=== PATIENT | female | born 1990 | race Two or more races ===

== ENCOUNTER → 2017-05-20 | Outpatient (CLI) | payer BC ==
[2017-05-20 12:36] LABS: Basophils # (auto) 0 uL; Basophils % (auto) 0.2 % (0.0-2.0); Eosinophils # (auto) 0.1 uL; Eosinophils % (auto) 0.6 % (0.0-7.0); Hematocrit 42.3 % (36.0-46.0); Lymphocytes # (auto) 1.8 uL; Lymphocytes % (auto) 17.6 % (10.0-50.0); Mean Corpuscular Hemoglobin 28.5 pg (28.0-32.0); Mean Corpuscular Hgb Conc. 33.1 g/dL (32.0-36.0); Monocytes # (auto) 0.7 uL; Monocytes % (auto) 6.8 % (0.0-12.0); Neutrophils # (auto) 7.4 uL; Neutrophils % (auto) 74.8 % (37.0-80.0); Nucleated Red Blood Cells % 0.1 %; Platelet Count (auto) 257 10^3/uL (140-450); Red Blood Cells 4.92 10^6/uL (4.0-5.20); Red Cell Distribution Width 15.8 % (11.8-14.3)
[2017-05-21 05:06] LABS: RPR Non Reactive (Non Reactive)
== END | disposition home or self-care (01) ==
LOC: LAB 11:20
PROVIDERS: ATTEND Obstetrics & Gynecology
DX: Z34.80 Encounter for supervision of other normal pregnancy, unspecified trimester (principal)
CPT/HCPCS: 36415; 85025; 87081

== ENCOUNTER 2017-06-03 10:28 | Observation (INO) | payer BC ==
[2017-06-03] MEDS ORDERED: PREN-96 PO (12:19)
== END 2017-06-03 12:15 | disposition home or self-care (01) | DRG 781 ==
LOC: LDRP 10:28
PROVIDERS: ADMIT Obstetrics & Gynecology; ATTEND Obstetrics & Gynecology
DX: O24.419 Gestational diabetes mellitus in pregnancy, unspecified control (principal); Z3A.37 37 weeks gestation of pregnancy
CPT/HCPCS: 59025; 76818; 81002; G0378

== ENCOUNTER 2017-06-06 10:52 | Observation (INO) | payer BC ==
[~2017-06-06 10:52] MED LIST: PREN-96 PO
== END 2017-06-06 13:00 | disposition home or self-care (01) | DRG 781 ==
LOC: LDRP 10:52
PROVIDERS: ADMIT Obstetrics & Gynecology; ATTEND Obstetrics & Gynecology
DX: O24.419 Gestational diabetes mellitus in pregnancy, unspecified control (principal); Z3A.00 Weeks of gestation of pregnancy not specified
CPT/HCPCS: 59025; 76818; 81002; 82962; G0378

== ENCOUNTER 2017-06-11 11:10 | Observation (INO) | payer BC | END 2017-06-11 13:15 | disposition home or self-care (01) | DRG 781 | LOC: LDRP 11:10 | PROVIDERS: ADMIT Specialist; ATTEND Specialist | DX: O24.410 Gestational diabetes mellitus in pregnancy, diet controlled (principal); Z3A.38 38 weeks gestation of pregnancy | CPT/HCPCS: 59025; 76818; 81002; 82948; 82962; G0378 ==

== ENCOUNTER 2017-06-14 11:00 | Observation (INO) | payer BC | END 2017-06-14 12:05 | disposition home or self-care (01) | DRG 781 | LOC: LDRP 11:00 | PROVIDERS: ADMIT Specialist; ATTEND Specialist | DX: O24.419 Gestational diabetes mellitus in pregnancy, unspecified control (principal); Z3A.39 39 weeks gestation of pregnancy | CPT/HCPCS: 59025; 76818; 81002; 82948; 82962; G0378 ==

== ENCOUNTER 2017-06-19 13:15 | Observation (INO) | payer BC | END 2017-06-19 15:15 | disposition home or self-care (01) | DRG 781 | LOC: LDRP 13:15 | PROVIDERS: ADMIT Specialist; ATTEND Specialist | DX: O24.419 Gestational diabetes mellitus in pregnancy, unspecified control (principal); Z3A.39 39 weeks gestation of pregnancy | CPT/HCPCS: 59025; 76818; 81002; G0378 ==

== ENCOUNTER 2017-06-21 12:00 | Observation (INO) | payer BC | END 2017-06-21 14:10 | disposition home or self-care (01) | DRG 781 | LOC: LDRP 12:00 | PROVIDERS: ADMIT Obstetrics & Gynecology; ATTEND Obstetrics & Gynecology | DX: O48.0 Post-term pregnancy (principal); O24.419 Gestational diabetes mellitus in pregnancy, unspecified control; Z3A.40 40 weeks gestation of pregnancy | CPT/HCPCS: 59025; 76818; 81002; 82962; G0378 ==

== ENCOUNTER 2017-06-23 19:00 | Inpatient (IN) | payer BC ==
[~2017-06-23] VITALS: Ht 157.5 cm; Wt 93.0 kg
[2017-06-23] MEDS ORDERED: LACT. RINGERS/OXYTOCIN 20UNITS 1,000 ML IV SCH (19:09)
[2017-06-23] MEDS ORDERED: NALBUPHINE HCL 10 MG/1ml INJECTION IV PRN (19:15)
[2017-06-23] MEDS ORDERED: METHYLERGONOVINE MALEATE 0.2 MG/ML AMP IM PRN (19:15)
[2017-06-23] MEDS ORDERED: CARBOPROST TROMETHAMINE 250 MCG/1ML VIAL IM PRN (19:15)
[2017-06-23] MEDS ORDERED: WITCH HAZEL-GLYCERIN PAD TOP PRN (19:15)
[2017-06-23] MEDS ORDERED: LIDOCAINE 2%HCL (LOCAL ANESTH.) INJ 20ML MDV IJ ONE (19:15)
[2017-06-23] MEDS ORDERED: PHISODERM TOP SOLN 240ML BTL TOP PRN (19:15)
[2017-06-23] MEDS ORDERED: DERMOPLAST 60ML BOTTLE TOP PRN (19:15)
[2017-06-23 20:39] LABS: Basophils # (auto) 0 uL; Basophils % (auto) 0.3 % (0.0-2.0); Eosinophils # (auto) 0 uL; Eosinophils % (auto) 0.4 % (0.0-7.0); Hematocrit 39.4 % (36.0-46.0); Hemoglobin 12.9 g/dL (12.2-16.2); Lymphocytes # (auto) 2.1 uL; Lymphocytes % (auto) 21.7 % (10.0-50.0); Mean Corpuscular Hgb Conc. 32.8 g/dL (32.0-36.0); Mean Corpuscular Volume 85.5 fL (80.0-100.0); Mean Platelet Volume 9.1 fL (6.9-10.8); Monocytes # (auto) 0.7 uL; Neutrophils # (auto) 6.7 uL; Neutrophils % (auto) 70.6 % (37.0-80.0); Nucleated Red Blood Cells % 0.2 %; Platelet Count (auto) 212 10^3/uL (140-450); Red Cell Distribution Width 16.6 % (11.8-14.3); White Blood Cell 9.5 10^3/uL (4.4-10.8)
[2017-06-23] MEDS: LACTATED RINGER'S 1,000 ML IV SCH (20:40)
[2017-06-23 20:47] LABS: Urine Bilirubin Negative (Negative); Urine Blood Negative /uL (Negative); Urine Color Yellow (Yellow); Urine Glucose Normal (Normal); Urine Ketone Negative (Negative); Urine Nitrite Negative (Negative); Urine RBC 1 /hpf (0 - 4); Urine Squamous Epithelial Cell FEW /hpf (<5); Urine Urobilinogen Normal (Negative); Urine pH 6.5 (5.0-8.0)
[2017-06-23 20:58] LABS: Albumin 2.6 g/dL (3.4-5.0); BUN/Creatinine Ratio 15.1; Potassium 3.3 mmol/L (3.5-5.1)
[2017-06-23 21:00] LABS: Bilirubin, Total 0.6 mg/dL (0.2-1.0); Total Protein 6.8 g/dL (6.4-8.2)
[2017-06-23 21:23] LABS: INR 0.89 (0.9-1.15); Partial Thromboplastin Time 26.1 sec (22.64-33.71); Prothrombin Time 9.7 sec (9.37-12.3)
[2017-06-24] VITALS (8 sets, daily range): BP systolic 101–132; BP diastolic 56–88
[2017-06-24] MEDS: LACTATED RINGER'S 1,000 ML IV SCH ×3 (00:14→19:09)
[2017-06-24] MEDS ORDERED: ePHEDrine SULFATE 50 MG/ML AMP IV ONE ×2 (07:45→08:00)
[2017-06-24] MEDS ORDERED: NALOXONE HCL 0.4 MG/ML VIAL IV ONE (07:45)
[2017-06-24] MEDS ORDERED: fentaNYL CITRATE 100 MCG/2 ML VL IV ONE (07:45)
[2017-06-24] MEDS ORDERED: LIDOCAINE HCL 2 %PF INJ 10ML AMP IJ ONE (07:45)
[2017-06-24] MEDS ORDERED: fentaNYL W ROPIVACAINE 150 ML EPI SCH ×2 (07:45→08:00)
[2017-06-24] MEDS ORDERED: CARBOPROST TROMETHAMINE 250 MCG/1ML VIAL IM ONE (14:19)
[2017-06-24] MEDS ORDERED: MIDAZOLAM HCL 1MG/1ML-2 ML VIAL ONE (14:20)
[2017-06-24] MEDS ORDERED: fentaNYL CITRATE 100 MCG/2 ML VL ONE (14:20)
[2017-06-24] MEDS ORDERED: OXYTOCIN 10UNIT/ML 1ML VIAL ONE ×2 (14:26→16:12)
[2017-06-24] MEDS ORDERED: OXYTOCIN 10 UNIT/ML 10ML VIAL ONE (14:32)
[2017-06-24] MEDS ORDERED: ceFAZolin 1GM VL ONE (14:32)
[2017-06-24] MEDS ORDERED: PHENYLEPHRINE HCL 10 MG/ML VL ONE (14:42)
[2017-06-24] MEDS ORDERED: ONDANSETRON HCL 4 MG/2 ML VIAL ONE (15:04)
[2017-06-24] MEDS ORDERED: MORPHINE SULF(PF) 0.5MG/ML 10ML VIAL ONE (15:19)
[2017-06-24] MEDS: LACT. RINGERS/OXYTOCIN 20UNITS 1,000 ML IV SCH ×2 (15:24→22:04)
[2017-06-24] MEDS ORDERED: MORPHINE SULF INJ 2 MG/ML SYRINGE 1ML IV PRN (15:30)
[2017-06-24] MEDS ORDERED: ONDANSETRON HCL 4 MG/2 ML VIAL IV PRN ×2 (15:30→15:45)
[2017-06-24] MEDS ORDERED: DEXAMETHASONE SOD PHOS 10MG/1ML VIAL INJ IV PRN (15:45)
[2017-06-24] MEDS ORDERED: HYDROmorphone HCL 2 MG/ML VL IV PRN (15:45)
[2017-06-24] MEDS ORDERED: diphenhdrAMINE HCL 50 MG/1 ML VL IV PRN (15:45)
[2017-06-24] MEDS ORDERED: KETOROLAC TROMETH 30 MG/ML 1ML VIAL IV PRN (15:45)
[2017-06-24] MEDS ORDERED: LABETALOL HCL 5 MG/ML 4ML SYRINGE IV PRN (15:45)
[2017-06-24] MEDS ORDERED: NALOXONE HCL 0.4 MG/ML VIAL IV PRN (15:45)
[2017-06-24] MEDS ORDERED: ePHEDrine SULFATE 50 MG/ML AMP IV PRN (15:45)
[2017-06-24] MEDS ORDERED: NALBUPHINE HCL 10 MG/1ml INJECTION SUBCUT ONE (15:45)
[2017-06-24] MEDS ORDERED: MIDAZOLAM HCL 1MG/1ML-2 ML VIAL IV PRN (15:45)
[2017-06-24] MEDS: KETOROLAC TROMETH 30 MG/ML 1ML VIAL IV PRN (18:14)
[2017-06-24 20:19] LABS: Basophils # (auto) 0 uL; Basophils % (auto) 0.1 % (0.0-2.0); Eosinophils # (auto) 0 uL; Eosinophils % (auto) 0.1 % (0.0-7.0); Hematocrit 37.6 % (36.0-46.0); Hemoglobin 12.4 g/dL (12.2-16.2); Lymphocytes # (auto) 1.4 uL; Lymphocytes % (auto) 11.5 % (10.0-50.0); Mean Corpuscular Hemoglobin 28.1 pg (28.0-32.0); Mean Corpuscular Volume 85.2 fL (80.0-100.0); Mean Platelet Volume 8.6 fL (6.9-10.8); Monocytes # (auto) 0.8 uL; Monocytes % (auto) 6.6 % (0.0-12.0); Neutrophils % (auto) 81.7 % (37.0-80.0); Nucleated Red Blood Cells % 0.1 %; Platelet Count (auto) 177 10^3/uL (140-450); White Blood Cell 12.2 10^3/uL (4.4-10.8)
[2017-06-24] MEDS ORDERED: diphenhdrAMINE HCL 50 MG/1 ML VL ONE (20:28)
[2017-06-24] MEDS: ceFAZolin 1GM/50ML 50 ML IV SCH (22:15)
[2017-06-25 00:30] VITALS: BP 100/54
[2017-06-25 04:15] VITALS: BP 99/54
[2017-06-25] MEDS: KETOROLAC TROMETH 30 MG/ML 1ML VIAL IV PRN (05:00)
[2017-06-25] MEDS: ceFAZolin 1GM/50ML 50 ML IV SCH ×2 (05:45→14:16)
[2017-06-25] MEDS: LACT. RINGERS/OXYTOCIN 20UNITS 1,000 ML IV SCH (05:46)
[2017-06-25 06:29] LABS: Basophils # (auto) 0 uL; Basophils % (auto) 0.1 % (0.0-2.0); Eosinophils # (auto) 0 uL; Eosinophils % (auto) 0.2 % (0.0-7.0); Hematocrit 34.3 % (36.0-46.0); Hemoglobin 11.4 g/dL (12.2-16.2); Lymphocytes # (auto) 1.1 uL; Lymphocytes % (auto) 10.9 % (10.0-50.0); Mean Corpuscular Hemoglobin 28.3 pg (28.0-32.0); Mean Corpuscular Hgb Conc. 33.1 g/dL (32.0-36.0); Mean Corpuscular Volume 85.5 fL (80.0-100.0); Mean Platelet Volume 8.9 fL (6.9-10.8); Monocytes # (auto) 0.6 uL; Monocytes % (auto) 5.7 % (0.0-12.0); Neutrophils # (auto) 8.1 uL; Neutrophils % (auto) 83.1 % (37.0-80.0); Platelet Count (auto) 161 10^3/uL (140-450); Red Cell Distribution Width 16.9 % (11.8-14.3); White Blood Cell 9.7 10^3/uL (4.4-10.8)
[2017-06-25] MEDS ORDERED: BISACODYL 10 MG RECT SUPP PR PRN (06:45)
[2017-06-25 07:30] VITALS: BP 109/55
[2017-06-25] MEDS: LACTATED RINGER'S 1,000 ML IV SCH (07:30)
[2017-06-25] MEDS ORDERED: SIMETHICONE 80 MG CHEWABLE TABLET PO PRN (08:15)
[2017-06-25] MEDS: HYDROcodone-ACET 5/325MG TAB PO PRN ×2 (09:08→17:00)
[2017-06-25] MEDS: DOCUSATE SOD 100 MG CAP PO SCH ×2 (09:31→22:46)
[2017-06-25] MEDS ORDERED: DOCUSATE SOD 100 MG CAP PO SCH (10:00)
[2017-06-25] MEDS ORDERED: SIMETHICONE 80 MG CHEWABLE TABLET PO SCH (12:00)
[2017-06-25 12:20] VITALS: BP 104/65
[2017-06-25] MEDS: IBUPROFEN 800 MG TAB PO PRN ×2 (12:34→22:46)
[2017-06-25 16:30] VITALS: BP 102/62
[2017-06-25 19:30] VITALS: BP 101/62
[2017-06-26] VITALS: BP 110/68
[2017-06-26] MEDS: LACTATED RINGER'S 1,000 ML IV SCH ×2 (01:36→02:44)
[2017-06-26] MEDS: HYDROcodone-ACET 5/325MG TAB PO PRN ×5 (01:37→23:49)
[2017-06-26 04:08] VITALS: BP 109/56
[2017-06-26 08:00] VITALS: BP 110/64
[2017-06-26] MEDS: IBUPROFEN 800 MG TAB PO PRN ×2 (08:35→17:00)
[2017-06-26] MEDS: DOCUSATE SOD 100 MG CAP PO SCH ×2 (09:57→22:30)
[2017-06-26 12:00] VITALS: BP 109/61
[2017-06-26 16:05] VITALS: BP 112/64
[2017-06-26 19:30] VITALS: BP 136/63
[2017-06-27] VITALS (7 sets, daily range): BP systolic 117–130; BP diastolic 66–85
[2017-06-27] MEDS: IBUPROFEN 800 MG TAB PO PRN ×2 (01:41→11:52)
[2017-06-27] MEDS: HYDROcodone-ACET 5/325MG TAB PO PRN ×3 (04:04→16:28)
[2017-06-27] MEDS: DOCUSATE SOD 100 MG CAP PO SCH (10:00)
== END 2017-06-27 20:55 | disposition home or self-care (01) | DRG 766 ==
LOC: LDRP 19:00
PROVIDERS: ADMIT Obstetrics & Gynecology; ATTEND Obstetrics & Gynecology
PROC: 10D00Z1 Extraction of Products of Conception, Low, Open Approach (ICD-10-PCS; principal; 2017-06-24 14:21)
DX: O62.0 Primary inadequate contractions (principal); O24.420 Gestational diabetes mellitus in childbirth, diet controlled; O69.81X0 Labor and delivery complicated by cord around neck, without compression, not applicable or unspecified; O77.0 Labor and delivery complicated by meconium in amniotic fluid; O61.0 Failed medical induction of labor; Z37.0 Single live birth; Z3A.40 40 weeks gestation of pregnancy
CPT/HCPCS: 36415; 51702; 59025; 80053; 81001; 81002; 82948; 82962; 85025; 85610; 85730; 86850; 86900; 86901; 94762; 96361; 96365; 96366; 96372; 96374; 96375; J0690; J1885; J2250; J2405; J2590; J3010

== ENCOUNTER 2023-01-05 21:51 | Emergency (ER) | payer BC ==
[~2023-01-05] VITALS: Ht 157.5 cm; Wt 95.0 kg
[2023-01-05 22:30] LABS: Basophils # (auto) 0 10 ^3/uL (0-0.2); Basophils % (auto) 0.5 % (0.0-2.0); Eosinophils # (auto) 0.1 10 ^3/uL (0-0.8); Eosinophils % (auto) 1.7 % (0.0-7.0); Hematocrit 39.7 % (36.0-46.0); Hemoglobin 13.7 g/dL (12.2-16.2); Lymphocytes # (auto) 2.7 10 ^3/uL (0.4-5.4); Mean Corpuscular Hemoglobin 29.6 pg (28.0-32.0); Mean Corpuscular Hgb Conc. 34.4 g/dL (32.0-36.0); Monocytes # (auto) 0.5 10 ^3/uL (0-1.3); Monocytes % (auto) 6.4 % (0.0-12.0); Neutrophils # (auto) 4.8 10 ^3/uL (1.6-8.6); Neutrophils % (auto) 58.4 % (37.0-80.0); Nucleated Red Blood Cells % 0.1 %; Red Blood Cells 4.62 10^6/uL (4.0-5.20); Red Cell Distribution Width 14.6 % (11.8-14.3); White Blood Cell 8.2 10^3/uL (4.4-10.8)
[2023-01-05 22:48] LABS: Albumin 3.6 g/dL (3.4-5.0); Calcium 9.1 mg/dL (8.5-10.1); Potassium 3.7 mmol/L (3.5-5.1)
[2023-01-05 22:51] LABS: Total Protein 7.4 g/dL (6.4-8.2)
[2023-01-05] MEDS ORDERED: HYDROcodone-ACET 5/325MG TAB PO ONE (23:45)
[2023-01-05] MEDS ORDERED: ASPirin 325 MG TAB PO ONE (23:45)
[2023-01-05] MEDS ORDERED: ONDANSETRON ODT 4 MG TAB PO ONE (23:45)
[2023-01-06] MEDS ORDERED: IBU600T PO (00:33)
[2023-01-06 01:27] VITALS: BP 106/68
== END 2023-01-06 01:30 | disposition home or self-care (01) ==
LOC: ER 21:51
DX: R07.89 Other chest pain (principal)
CPT/HCPCS: 36415; 71045; 80053; 81025; 83880; 84484; 85025; 93005